=== PATIENT | female | born 1945 | race Caucasian/White ===

== ENCOUNTER 2023-09-06 09:30 | Outpatient (AMB) | payer MEDICARE, SELFPAY ==
--- NOTE | 2023-09-06 09:34 | A.SPINEOV_ITS ---
Intake Intake Visit Reasons: low back pain Intake Note: Ms. Bianchi is here today c/o low back pain. MRI done @ [place]. Director Medical Writing Required: No Assessment & Plan Assessment & Plan (1) Lumbar degenerative disc disease: Code(s): M51.36 - Other intervertebral disc degeneration, lumbar region Plan This is a 78-year-old female with a remote history of an L5-S1 microdiskectomy who is self-referred to the office today for evaluation of chronic low back pain that goes down both of her legs into her outer thighs, outer calves. The pain has been coming and going for many years. 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 The pain is particularly worse in the morning when she gets up she will have a severe ache and feeling of cramping and throbbing down the back of her legs into her calves. He interestingly, when she is standing and walking she seems to be okay for a while but then eventually she will have to sit down. Going from a seated position to a standing position can be quite difficult. She has been through physical therapy, career center director, [id number] medications such as Tylenol, Motrin. She currently cannot take anti-inflammatories because of Eliquis. She has been followed by the [facility] team in [place] for many years and is on been undergoing injections which were tremendously successful for years but have more recently started to wear off more quickly. She did have an injection in July of this year and that helped her for 3 weeks. She is not sure what localized part of the spine that they injected but was told that they put the triple dose of medicine in the spot for her to get the desired effect. PMH: History of AFib with stroke, her last stroke was a year ago or so and she recovered from that without incident, she is back to work, history of hypertension, borderline diabetes with A1c around 6, hypertension, bilateral knee replacements, hernia repair, Maeve-en-Y bypass, hysterectomy, hypothyroidism, GERD Social hx: She quit smoking many years ago, occasional alcohol use, no drug Medications: Levothyroxine, pantoprazole, gabapentin, valsartan, hydrochlorothiazide, amlodipine, rosuvastatin, Eliquis Allergies: Sulfa and tape Physical exam: No acute distress, full strength of bilateral upper lower extremities, slightly antalgic gait. Imaging review: Lumbar MRI done at [place] in 2022 reveals a postsurgical change at L5-S1 with laminotomy defect, a severely collapsed disc with bilateral moderate neural foraminal stenosis. She also has a slight grade 1 spondylolisthesis at L4-5. Impression: This is a 78-year-old self-referred female with a previous history of an L5-S1 microdiskectomy 30 years ago who now has chronic low back pain going down into her posterior-lateral thighs and into her calves. The pain is particularly bad in the morning and when she is rising up from a seated position. Interestingly she can walk for decent distances but she will ultimately have to sit down if she standing or walking for any length of time. She has not at this time ready to consider any kind of back surgery because of her life circumstances with work. We did review her MRI together and discussed the fact that she has a severely collapsed disc at L5-S1 with neuroforaminal stenosis bilaterally and that this certainly could be contributing to her symptoms. I am going to get the records from [facility] [place] to confirm where they have been injecting to see if it is anywhere in the region of L5-S1 because she has had good response to those injections. She also has a grade 1 spondylolisthesis at L4-5. I will send her for set of flexion-extension x-rays in the upright position to rule out any occult instability. Typically we would treat this surgically with spinal fusion, possibly L5-S1 or combination of L4-5 and L5-S1 depending on the x-rays. Using an anterior or oblique approach would typically be approach, but she does have a history of multiple abdominal surgeries so we may have to choose something more along the lines of a transforaminal lumbar interbody fusion. I will see her back in 3 months and we can review the x-rays again and sit down Dr. Perez to finalize a surgical plan if she is at a point where she wishes to consider surgery. Thank you for allowing us to care for your patient. The total time spent with this visit with this patient was 45 minutes reviewing history, physical exam, lumbar imaging review, and implementation of treatment plan or further diagnostic testing Pete Perez MD,PhD [facility] Orders: Orders XR lumbar spine 4V min Today M51.36 - Other intervertebral disc degeneration, lumbar region Coding Level of Care Code New Pt Level 4 (64805) Diagnoses Lumbar degenerative disc disease M51.36
== END 2023-09-06 10:16 | disposition home or self-care (01) ==
PROVIDERS: PCP Internal Medicine; Visit Provider Physician Assistant
DX: M51.36 Other intervertebral disc degeneration, lumbar region (principal)
CPT/HCPCS: 99204

== ENCOUNTER 2023-09-06 09:30 | Outpatient (REF) | payer MEDICARE, SELFPAY ==
--- NOTE | ~2023-09-06 | XR_ITS ---
EXAMINATION: XR LUMBOSACRAL SPINE WITH OBLIQUES CLINICAL INFORMATION: Lumbar degenerative disc disease. COMPARISON: MRI lumbar spine dated 04/22/2006. TECHNIQUE: AP, both oblique, and lateral views of the lumbar spine. Lateral view of the lumbosacral junction. FINDINGS: There is bony demineralization. There is a mild lumbar levoscoliosis. At L4-L5, there is moderate posterior disc space narrowing, with a 4 mm anterolisthesis. At L5-S1, there is moderate degenerative disc disease, with spondylosis. The remaining disc spaces are relatively well-maintained. No acute fracture or spondylolisthesis is seen. There is multi-level thoracolumbar spondylosis. The posterior elements are intact. There is facet arthropathy, most pronounced extending from L3-L4 through L5-S1. There are aortoiliac atherosclerotic calcifications. There are right abdominal surgical clips. XR/XR lumbar spine 4V min IMPRESSION: 1. There is mild degenerative disc disease at L4-L5, and moderately severe degenerative disc disease is seen at L5-S1. 2. There is multi-level thoracolumbar spondylosis. 3. There is facet arthropathy, most pronounced extending from L3-L4 through L5-S1.
== END 2023-09-06 09:31 | disposition home or self-care (01) ==
LOC: HO.HOSX 09:30
PROVIDERS: PCP Internal Medicine; Visit Provider Physician Assistant
DX: M51.36 Other intervertebral disc degeneration, lumbar region (principal)
CPT/HCPCS: 72110; 99202

== ENCOUNTER 2024-01-10 13:28 | Outpatient (AMB) | payer MEDICARE, SELFPAY ==
--- NOTE | 2024-01-10 13:51 | A.SPINEOV_ITS ---
Intake Intake Visit Reasons: 3 month follow up Intake Note: Ms. Bianchi is here today for a 3 month F/u. 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 I previously saw her for complaints of back pain and bilateral leg pain going down into her calves and into her feet. She has been through numerous rounds of conservative treatment. Last time I saw her we discussed the fact that she had a severely collapsed disc at L5-S1 with bilateral neuroforaminal stenosis, worse on the left than the right. Her films were done at [place]. I sent her for upright x-rays to evaluate spondylolisthesis that was seen at L4-5. Thankfully shows no signs of instability. However, based off the x-rays I suspect that she has osteoporosis. At the current time she is still experiencing the same symptoms she had when I 1st saw her. They are aggravated with standing and walking and bending. The leg pain is really the worst part of the whole syndrome. 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 It does improve quite a bit when she sits. I reviewed her imaging again, I suspect she is getting some symptoms coming from the L5 nerves. It is not the worst foraminal stenosis that I have ever seen, but given her clinical description I suspect this is where the symptoms coming from. I am going to get her records from the [facility] to see where she had her injections done, because she does report that she had excellent results from those injections for many years. If we can confirm they were injecting near the L5 nerve roots, this would give us more confirmation that this is where the symptoms are coming from. Once I have those records I can review everything with Dr. Perez and see if she would be a good candidate for decompression surgery. I do not think we would be able to do fusion given her lack of bone quality. Total amount of time spent in this visit was 20 minutes in discussion of symptoms, lumbar MRI imaging results and subsequent plan of care Pete Perez MD,PhD [facility] Coding Level of Care Code Est Pt Level 3 (62881) Diagnoses Lumbar degenerative disc disease M51.36
== END 2024-01-10 14:58 | disposition home or self-care (01) ==
PROVIDERS: PCP Internal Medicine; Visit Provider Physician Assistant
DX: M51.36 Other intervertebral disc degeneration, lumbar region (principal)
CPT/HCPCS: 99213

== ENCOUNTER → 2024-01-10 13:28 | Outpatient (BNVA) | payer MEDICARE, SELFPAY | PROVIDERS: PCP Internal Medicine; Visit Provider Physician Assistant | DX: M51.36 Other intervertebral disc degeneration, lumbar region (principal) | CPT/HCPCS: 99212 ==